=== PATIENT | male | born 1970 ===

== ENCOUNTER 2023-03-17 09:40 | Observation (INO) | payer OTHER ==
[~2023-03-17] VITALS: Ht 177.8 cm; Wt 128.0 kg
[2023-03-17] VITALS (12 sets, daily range): BP systolic 99–156; BP diastolic 47–83
--- NOTE | 2023-03-17 09:41 | NUR ---
PATIENT TO ROOM VIA EMS. GUARDS AT BEDSIDE. PATIENT COMING FROM [facility]
--- NOTE | 2023-03-17 10:01 | NUR ---
RN AT BEDSIDE. PATIENT RESTING IN BED. MD EXPLAINED PLAN OF CARE TO PATIENT
--- NOTE | 2023-03-17 10:10 | NUR ---
ASSUMED CARE OF THE [id number] AT THIS TIME. PATIENTS LEFT LOWER LEG IS RED, HOT TO THE TOUCH AND HAS 2 PLUS EDEMA. PULSES ARE PRESENT AND BOUNDING. IV ACCESS IN THE RIGHT WRIST, 18G WAS INITIATED BY EMS. DR. GORDILLO AT THE BEDSIDE TO DISCUSS POC.
[2023-03-17 10:30] LABS: BASO% 0.1 % (0-3); HEMOGLOBIN 14.7 g/dl (14.0-18.0); IMMATURE GRANULOCYTES 0.9 % (0.0-5.0); LYMPH% 0.8 % (15-41); MEAN CELL VOLUME 85.6 fL CALC (80.0-100.0); MEAN CORPUSCULAR HGB 27.9 pG CALC (26.0-32.0); MEAN CORPUSCULAR HGB CONC 32.7 g/dL CAL (32.0-36.0); MONO% 2.7 % (2-13); NEUT# 12.32 thou/uL (1.82-7.42); NEUT% 95.5 % (42-76); RED BLOOD COUNT 5.26 mill/uL (4.70-6.10); RED CELL DISTRI WIDTH 13.1 % (11.5-15.5)
[2023-03-17 10:49] LABS: ALBUMIN 4.2 g/dL (3.2-5.0); POTASSIUM 4.8 mmol/l (3.5-5.1)
[2023-03-17 10:51] LABS: BILIRUBIN, TOTAL 0.8 mg/dL (0.2-1.3); CREATININE 2.1 mg/dL (0.7-1.3)
--- NOTE | 2023-03-17 10:59 | NUR ---
CALL FROM LAB FOR RESULT LACTIC ACID 4.0
--- NOTE | 2023-03-17 10:59 | NUR ---
BLOOD CULTURES DRAWN AND ABT INITIATED.
[2023-03-17] MEDS ORDERED: CALCIUM CARB500 MG PO (11:17)
[2023-03-17] MEDS ORDERED: MYSOLINE50 M1 PO ×2 (11:20→11:27)
[2023-03-17] MEDS ORDERED: TAMSULOSIN0.4 MG PO (11:23)
[2023-03-17] MEDS ORDERED: KEPPRA500 M2 PO (11:23)
[2023-03-17] MEDS ORDERED: PRAZOSIN HCL5 MG PO (11:24)
[2023-03-17] MEDS ORDERED: LITHIUM CARB300 MG PO (11:25)
[2023-03-17] MEDS ORDERED: SEROQUEL XR200 MG PO (11:26)
[2023-03-17] MEDS ORDERED: TEGRETOL200 MG PO (11:27)
[2023-03-17] MEDS ORDERED: LAMICTAL100 M1 PO (11:28)
[2023-03-17] MEDS ORDERED: KETOROLAC IM (11:29)
[2023-03-17] MEDS ORDERED: LISINOPRIL5 MG PO (11:30)
[2023-03-17] MEDS ORDERED: METFORMIN HCL1000 MG PO (11:30)
[2023-03-17] MEDS ORDERED: ATORVASTATIN CA80 MG PO (11:31)
[2023-03-17] MEDS ORDERED: ISOSORB MONO30 MG PO (11:31)
[2023-03-17] MEDS ORDERED: OMEPRAZOLE20 MG PO (11:31)
--- NOTE | 2023-03-17 12:03 | NUR ---
PATIENT [id number] WITH TORADOL AT THIS TIME.
--- NOTE | 2023-03-17 12:53 | NUR ---
CALL FROM LAB, LACTIC RESULT 3.7, DR ABEL AWARE
--- NOTE | 2023-03-17 13:33 | NUR ---
SECOND LITER OF IVF INITIATED. PATIENT IN NO DISTRESS. V/S STABLE.
--- NOTE | 2023-03-17 14:39 | NUR ---
VERBAL REPORT CALLED TO [facility] ON [facility]. PATIENT TRANSPORTRED TO THE FLOOR.
[2023-03-17] MEDS ORDERED: SEROQUEL200 MG PO ×2 (15:30→15:31)
--- NOTE | 2023-03-17 15:33 | NUR ---
PT arrived via [facility] with er nurse tech with 2 guards present. pt able to ambulate indepedently. orientated pt to room and call pantoja system. educated pt in current plan of care. pt indicated understanding. admission assessment completed. drink/snack provided. fall/saftey precaution in place. call light within reach.
[2023-03-17 16:33] LABS: ANION GAP 13 (6-22 (CALC)); BUN 30 mg/dL (9-20); BUN/CREATININE RATIO 21 (12-20 (CALC)); CARBON DIOXIDE 25 mmol/l (22-30); CHLORIDE 98 mmol/l (95-108); CREATININE 1.4 mg/dL (0.7-1.3); GFR FOR AFR.AMER. > 60 ML/MIN (>=60 (CALC)); GFR OTHER RACES 53 ML/MIN (>=60 (CALC)); POTASSIUM 4.6 mmol/l (3.5-5.1); SODIUM 131 mmol/l (137-146)
--- NOTE | 2023-03-17 19:27 | NUR ---
BEDSIDE REPORT RECEIVED FORMOFF GOING NURSE. PATIENT AWAKE AND ALERT AT THIS TIME WITH 2 GUARDS AT BEDSIDE. C/O HEADACHE AND NEEDING INHALER AND NASAL SPRAY. MADE AWARE AND NEW BLUE RECEIVED FOR INHALER AND NASAL SPRAY. PATIENT WILL CONTINUE WITH CURRENT TYLENOL ORDER FOR HEADACHE. BED LINENS CHANGED DUE TO PATIENT SPILLING WATER ON BED. SAFETY MEASURES IN PLACE.
[2023-03-17 19:34] LABS: URINE BLOOD DIPSTICK TRACE-INTACT (NEGATIVE); URINE CLARITY CLEAR; URINE COLOR YELLOW; URINE GLUCOSE - DIPSTICK 100 mg/dL (NEGATIVE); URINE KETONE TRACE mg/dL (NEGATIVE); URINE LEUK ESTERASE NEGATIVE (Negative); URINE NITRITE - DIPSTICK NEGATIVE (Negative); URINE PH 5.5 (4.5-8.0); URINE PROTEIN - DIPSTICK 100 mg/dL (NEG-TRACE); URINE SPECIFIC GRAVITY >=1.030; URINE UROBILINOGEN - DIPSTICK 0.2 E.U./dL (0.2)
[2023-03-17 19:36] LABS: URINE BILIRUBIN - DIPSTICK SEE COMMNET (NEGATIVE); URINE RBC 0-2 RBC/hpf (0-5); URINE WBC 0-2 WBC/hpf (0-5)
--- NOTE | 2023-03-17 22:57 | NUR ---
PATIENT IN BED ASLEEP AT THIS TIME WITH CPAP IN PLACE. 2 GUARDS IN ROOM WITH PATIENT. SAFETYMEASURES IN PLACE. CALL LIGHT WITHIN REACH.
--- NOTE | 2023-03-18 01:55 | NUR ---
PATIENT UP TO BATHROOM AND IS IMPULSIVE AT TIMES WITH NEEDING TO GET UP. REMINDED TO USE CALL LIGHT FOR ASSISTANCE SINCE HE IS ON CONTINUOUS IV FLUIDS AND CPAP. GUARDS REMAIN IN ROOM WITH PATIENT. DENIES PAIN OR DISCOMFORT AT THIS TIME. CALL LIGHT WITHIN REACH.
[2023-03-18 04:08] VITALS: BP 101/45
--- NOTE | 2023-03-18 05:24 | NUR ---
PATIENT ASLEEP IN BED. RESPIRATIONS EVEN AND UNLABORED. CONTINUES ON BIPAP. TWO GUARDS REMAIN AT BEDSIDE. SAFETY MEASURES IN PLACE. LLE ELEVATED.
[2023-03-18 05:29] LABS: BASO% 0.1 % (0-3); HEMATOCRIT 40.7 % (39.0-50.0); HEMOGLOBIN 13.4 g/dl (14.0-18.0); IMMATURE GRANULOCYTES 1.3 % (0.0-5.0); LYMPH% 2.1 % (15-41); MEAN CELL VOLUME 84.4 fL CALC (80.0-100.0); MEAN CORPUSCULAR HGB 27.8 pG CALC (26.0-32.0); MEAN CORPUSCULAR HGB CONC 32.9 g/dL CAL (32.0-36.0); MONO% 2.9 % (2-13); NEUT# 6.38 thou/uL (1.82-7.42); NEUT% 93.6 % (42-76); RED BLOOD COUNT 4.82 mill/uL (4.70-6.10); RED CELL DISTRI WIDTH 13.2 % (11.5-15.5)
[2023-03-18 05:42] LABS: ALKALINE PHOSPHATASE 49 u/l (38-126); BUN 26 mg/dL (9-20); BUN/CREATININE RATIO 24 (12-20 (CALC)); CARBON DIOXIDE 23 mmol/l (22-30); CHLORIDE 100 mmol/l (95-108); CREATININE 1.1 mg/dL (0.7-1.3); GFR FOR AFR.AMER. > 60 ML/MIN (>=60 (CALC)); GFR OTHER RACES > 60 ML/MIN (>=60 (CALC)); MAGNESIUM 1.5 mg/dL (1.6-2.3); SGOT/AST 64 u/l (17-59); SODIUM 132 mmol/l (137-146)
[2023-03-18 05:48] LABS: ALBUMIN 3.1 g/dL (3.2-5.0); ANION GAP 12 (6-22 (CALC)); BILIRUBIN, TOTAL 0.4 mg/dL (0.2-1.3); POTASSIUM 3.3 mmol/l (3.5-5.1); TOTAL PROTEIN 5.4 g/dL (6.3-8.2)
--- NOTE | 2023-03-18 08:00 | NUR ---
GOT REPORT FROM SENIOR SQL DBA NURSE. PATIENT ASSESSED. AOX4. PATIENT CURRENTLY HAS BIPAP ON FOR SLEEP. PATIENT VSS, PATIENT DENIES ANY DISTRESS BESIDE HIS BACK IS SORE. BIPAP REMOVED, MEDICATION GIVEN. AFTER MEDS GIVEN PATIENT DOES NOT WANT BREAKFAST. BIPAP PLACED BACK ON SO PATIENT CAN GO BACK TO SLEEP. CALL LIGHT AND BEDSIDE TABLE WITH IN REACH.
[2023-03-18 08:28] VITALS: BP 110/54
--- NOTE | 2023-03-18 11:38 | NUR ---
S: LYNDSEY CHAUHAN is a 52 M who presents with cellulitis. He has a history of diabetes, hypertension, bipolar disorder, A-Fib, cellulitis L leg. All medications in patient's chart were reviewed. O: VS: BP 110/54 mmHg, P 97bpm, RR 18bpm,T 98.1F W 128kg, HT 70in, Scr= 1.1, CrCl= 104.4ml/min A: Blood culture is pending. P: Patient is on ceftriaxone 2 gm IV daily. Vancomycin ordered for pharmacy to dose. Start Vancomycin 1250mg IV Q8H. Vancomycin trough is drawn before the 4th dose on 03/19/23 @ 0930. Vancomycin goal trough is between 10-15 mcg/ml. Pharmacy will follow and or advise on antibiotics use as needed.
--- NOTE | 2023-03-18 12:00 | NUR ---
PATIENT LAYING IN BED. WITH GUARDS AT BEDSIDE. NO NEEDS AT THIS TIME. PATIENT HAS CALL LIGHT. ADVISED TO CALL IF NEEDING ANYTHING. PATIENT VERBALIZED UNDERSTANDING.
[2023-03-18 14:33] VITALS: BP 125/72
[2023-03-18 15:02] VITALS: BP 125/72
--- NOTE | 2023-03-18 15:02 | NUR ---
REMOVED COVERS OFF OF PATIENT AND OPENED DOOR TO ALLOW CIRCULATION INTO ROOM. ROOM IS HOT, TURNED DOWN ROOM TEMP. WILL RECHECK IN A BIT.
--- NOTE | 2023-03-18 15:02 | NUR ---
NURSE NOTIFIED OF TEMP. 101.1
--- NOTE | 2023-03-18 16:00 | NUR ---
PATIENT IS SITTING UP IN BED WATCHING TV. IV BEEPING DUE TO LOW BATTERY, IV PUMP PLUGGED IN. PATIENT HAS NO SXS OF DISTRESS. PATIENT HAS NO NEEDS AT THIS TIME. ADVISED TO CALL IF NEEDED. PATIENT VERBALIZED UNDERSTANDING.
[2023-03-18 19:05] VITALS: BP 119/75
--- NOTE | 2023-03-18 19:12 | NUR ---
BEDSIDE REPORT RECEIVED FROM OFF GOING NURSE. PATIENT AWAKE IN BED WITH TWO GUARDS AT BEDSIDE. DENIES PAIN OR DISCOMFORT AT THIS TIME. HEAD TO TOE ASSESSMENT COMPLETED. SAFEY MEASURES INPLACE. CALL LIGHT WITHIN REACH.
--- NOTE | 2023-03-18 22:39 | NUR ---
PATIENT ASLEEP IN BED. TWO GUARDS AT BEDSIDE. SAFETY MEASURES IN PLACE. CALL LIGHT WITHIN REACH.
--- NOTE | 2023-03-18 23:28 | NUR ---
REPORT RECEIVED FROM Kumar GAUTHIER RN
--- NOTE | 2023-03-18 23:40 | NUR ---
BEDSIDE REPORT GIVEN TO ONCOMING NURSE. PATIENT ASLEEP WITH RESPIRATIONS EVEN AND UNLABORED. CPAP IN PLACE. GUARDS REMAIN AT BEDSIDE. CALL LIGHT WITHIN REACH.
[2023-03-19 04:09] VITALS: BP 114/69
--- NOTE | 2023-03-19 04:30 | NUR ---
PATIENT RESTING, BI-PAP ON. NO APPARENT DISTRESS NOTED. RESPIRATIONS EVEN AND UNLABORED. RISE AND FALL OF CHEST NOTED. CALL LIGHT AND BEDSIDE TABLE WITHIN REACH. GUARDS AT BEDSIDE.
[2023-03-19 06:07] LABS: BASO% 0.2 % (0-3); HEMATOCRIT 39.1 % (39.0-50.0); IMMATURE GRANULOCYTES 0.2 % (0.0-5.0); LYMPH% 9.7 % (15-41); MEAN CORPUSCULAR HGB 28.3 pG CALC (26.0-32.0); MEAN CORPUSCULAR HGB CONC 33.2 g/dL CAL (32.0-36.0); MONO% 5.8 % (2-13); NEUT# 3.92 thou/uL (1.82-7.42); NEUT% 84.1 % (42-76); RED BLOOD COUNT 4.6 mill/uL (4.70-6.10); RED CELL DISTRI WIDTH 13.2 % (11.5-15.5)
[2023-03-19 06:27] VITALS: BP 113/66
[2023-03-19 06:38] LABS: ALBUMIN 3.2 g/dL (3.2-5.0); ALKALINE PHOSPHATASE 62 u/l (38-126); ANION GAP 9 (6-22 (CALC)); BILIRUBIN, TOTAL 0.3 mg/dL (0.2-1.3); BUN 14 mg/dL (9-20); BUN/CREATININE RATIO 17 (12-20 (CALC)); CARBON DIOXIDE 26 mmol/l (22-30); CHLORIDE 102 mmol/l (95-108); CREATININE 0.8 mg/dL (0.7-1.3); GFR FOR AFR.AMER. > 60 ML/MIN (>=60 (CALC)); GFR OTHER RACES > 60 ML/MIN (>=60 (CALC)); POTASSIUM 3.3 mmol/l (3.5-5.1); SGOT/AST 84 u/l (17-59); SODIUM 134 mmol/l (137-146)
[2023-03-19 06:40] LABS: MAGNESIUM 1.9 mg/dL (1.6-2.3)
--- NOTE | 2023-03-19 07:30 | NUR ---
RECIEVED BEDSIDE REPORT, WHITE BOARD UPDATED, MEHNAZ IN ROOM, NO NEEDS AT THIS TIME, NO S./S OF DISTREE, PATIENT SAFETY MEASURES IN PLACE.
[2023-03-19 09:28] VITALS: BP 113/66
--- NOTE | 2023-03-19 12:08 | NUR ---
PATIENT IN BED , GAURDS IN ROOM, NO S/S OF DISTRESS, PATIENT SAFETY MEASURES IN PLACE.
[2023-03-19] MEDS ORDERED: DOXYCYCLINE100 MG PO (13:14)
[2023-03-19] MEDS ORDERED: ROCEPHIN 1 GM1 GM IV (13:14)
--- NOTE | 2023-03-19 13:24 | NUR ---
S: LYNDSEY CHAUHAN is a 52 M who presents with cellulitis. All medications in patient's chart were reviewed. O: VS: BP 113mmHg, P 89bpm, RR 18bpm,T 98.1F W 128 kg, HT 70in, Scr= 1.1,CrCl= 104.4 ml/min A: Preliminary blood culture show no growth after 48 hours. P: Patient is on ceftriaxone 2 gm IV daily. Vancomycin ordered for pharmacy to dose. Continue Vancomycin 1250 mg IV Q8H. Vancomycin trough is drawn before the dose on 03/20/2023 @ 0930. Vancomycin goal trough is between 10-15 mcg/ml. Pharmacy will follow and or advise on antibiotics use as needed.
--- NOTE | 2023-03-19 13:55 | NUR ---
NURSE TO NURSE REPORT CALLED AT 1330, PACKET GIVEN TO MEHNAZ, PATIENT IN STABLE CONDITION, IV REMOVED.
== END 2023-03-19 14:02 | disposition designated cancer center or children's hospital (05) | DRG 603 ==
LOC: ED 09:40 → ED-I 13:21 → ED 13:32 → MS2 13:33
PROVIDERS: Family Medicine; Nurse Practitioner Family; ADMIT Internal Medicine; ATTEND Internal Medicine
DX: L03.116 Cellulitis of left lower limb (principal); I10 Essential (primary) hypertension; E11.9 Type 2 diabetes mellitus without complications; J44.9 Chronic obstructive pulmonary disease, unspecified; I48.91 Unspecified atrial fibrillation; G40.909 Epilepsy, unspecified, not intractable, without status epilepticus; G47.30 Sleep apnea, unspecified; F31.9 Bipolar disorder, unspecified; Z79.84 Long term (current) use of oral hypoglycemic drugs; Z95.810 Presence of automatic (implantable) cardiac defibrillator; Z95.5 Presence of coronary angioplasty implant and graft; R50.9 Fever, unspecified; R00.0 Tachycardia, unspecified; R53.81 Other malaise
CPT/HCPCS: G0378; J1650; J3370; J3475